=== PATIENT | male | born 1995 | race Caucasian/White ===

== ENCOUNTER 2025-02-18 11:22 | Emergency (ER) | payer MEDICAID, SELFPAY ==
[2025-02-18 11:23] VITALS: BMI 19.0
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
[2025-02-18 12:15] VITALS: BP 131/90; PULSE 109; RESP 16; TEMP 36.6; O2SAT 98; BMI 20.3
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
--- NOTE | 2025-02-18 13:37 | PC.NURSE ---
NO ANSWER IN LOBBY WHEN CALLED FOR REVIEW
--- NOTE | 2025-02-18 14:16 | PC.NURSE ---
no answer in lobby when called for room in ed
--- NOTE | 2025-02-18 14:40 | PC.NURSE ---
called for pt from lobby/outside, no [id number]
== END 2025-02-18 14:40 | disposition left against medical advice (07) ==
PROVIDERS: Emergency Provider Emergency Medicine; PCP Family Medicine
DX: R07.1 Chest pain on breathing (principal); R10.9 Unspecified abdominal pain; Z53.29 Procedure and treatment not carried out because of patient's decision for other reasons
CPT/HCPCS: 71250; 74176; 99281